=== PATIENT | female | born 2000 | race Caucasian/White ===

== ENCOUNTER → 2023-08-24 | Outpatient (CLI) | payer BC, OTHER ==
[2023-08-24 15:58] LABS: Basophils # (A) 0.05 X 10*3/uL (0.00-0.10); Basophils % (A) 0.6 %; Eosinophils # (A) 0.17 X 10*3/uL (0.04-0.35); Eosinophils % (A) 2.1 %; HCT 43.7 % (37.2-46.3); HGB 13.5 g/dL (12.0-15.0); Lymphocytes # (A) 2.21 X 10*3/uL (0.90-5.00); Lymphocytes % (A) 27.8 %; MCHC 30.9 g/dL (32.0-37.0); MCV 87.4 FL (80.0-97.0); Mean Platelet Volume 11.7 FL (9.5-12.2); Monocytes # (A) 0.67 X 10*3/uL (0.20-1.00); Monocytes % (A) 8.4 %; NRBC Per 100 WBC 0 X 10*3/uL (0.00-0.01); Neutrophils # (A) 4.82 X 10*3/uL (1.80-7.70); Neutrophils % (A) 60.8 %; Platelet Count 292 X 10*3/uL (140-440); RDW 14.2 % (11.5-14.5); WBC 7.94 X 10*3/uL (4.50-10.00)
[2023-08-24 16:44] LABS: ALT 22 U/L (8-44); AST 18 U/L (13-35); Albumin 4.4 g/dL (3.8-4.9); Albumin/Globulin Ratio 1.52 Ratio (1.60-3.17); Alkaline Phosphatase 107 U/L (41-126); BUN/Creat Ratio 15.86 Ratio (12.00-20.00); Bilirubin, Conjugated <0.20 mg/dL (0.20-0.40); Bilirubin,Unconjugated >0.10 mg/dL (0.20-1.00); Blood Urea Nitrogen 11.1 mg/dL (9.0-27.0); Calcium 9.4 mg/dL (8.7-10.3); Carbon Dioxide 23.4 mmol/L (21.6-31.8); Chloride 103 mmol/L (96-109); Chol/HDL Ratio 3.44 Ratio; Globulin 2.9 g/dL (1.6-3.3); Glucose 89 mg/dL (70-110); LDL Cholesterol,Calculated 97.5 mg/dL (0.0-131.0); Potassium 4.1 mmol/L (3.5-5.5); Sodium 138 mmol/L (135-145); T4, Free (Free Thyroxine) 1.12 ng/dL (0.80-1.80); Total Bilirubin 0.3 mg/dL (0.3-1.2); Total Protein 7.3 g/dL (6.2-8.2); VLDL Calculation 15.26 mg/dL (5.00-40.00)
== END | disposition home or self-care (01) ==
LOC: LABWHC1 09:37
PROVIDERS: ATTEND Family Medicine
DX: Z79.899 Other long term (current) drug therapy (principal); E55.9 Vitamin D deficiency, unspecified; R51.9 Headache, unspecified; R73.01 Impaired fasting glucose
CPT/HCPCS: 36415; 80053; 80061; 82248; 82306; 83036; 84146; 84439; 84443; 85025

== ENCOUNTER → 2023-09-08 | Outpatient (CLI) | payer BC, OTHER ==
--- NOTE | 2023-09-08 19:19 | MR ---
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 The patient was then given intravenous contrast and multi planar, T1 fat-saturation images wer e obtained. IV Contrast: 8.5 cc Gadavist FINDINGS: The godfrey-white junctions, ventricular system, basal cisterns appear unremarkable. Diffusion-weighted imaging shows no evidence of restricted diffusion to suggest acute/subacute infarct. Intracranial ar terial flow voids are maintained. Midline structures show no abnormality. The susceptibility weighted images do not reveal any evidence for micro-hemorrhage. There is blooming artifact within the left f rontal lobe and postcontrast enhancement compatible with abdominal venous anomaly. After administrati on of gadolinium, no abnormal enhancement is seen. The bone marrow signal is within normal limits. Paranasal sinuses and mastoid air cells: Moderate paranasal sinus disease with mucosal thickening/sec retions abdominal exercises and sphenoid sinuses.. Visualized orbits: Orbital contents are intact. IMPRESSION: 1. No evidence of intracranial mass, acute/subacute infarct, or abnormal enhancement. 2. Left frontal lobe development of venous anomaly.
== END | disposition home or self-care (01) ==
LOC: RADMRIMAIN 16:02
PROVIDERS: ATTEND Family Medicine
DX: Q28.2 Arteriovenous malformation of cerebral vessels (principal); G43.109 Migraine with aura, not intractable, without status migrainosus; H53.9 Unspecified visual disturbance
CPT/HCPCS: 70553; A9585